=== PATIENT | female | born 1955 | race Caucasian/White ===

== ENCOUNTER → 2016-10-07 | Outpatient (CLI) | payer MEDICARE, OTHER | LOC: LAB.O 10:28 | PROVIDERS: ATTEND Family Medicine | DX: E03.9 Hypothyroidism, unspecified (principal); I10 Essential (primary) hypertension; N39.0 Urinary tract infection, site not specified ==

== ENCOUNTER → 2016-10-13 | Outpatient (CLI) | payer MEDICARE, OTHER ==
--- NOTE | 2016-10-13 13:53 | MAM ---
History: Well woman exam. Date of exam: 10/13/2016 Services provided: Bilateral full field digital screening mammography. CAD, the images were reviewed with R2 computer aided detection. FINDINGS: Glandular tissue is scattered glandular contour. Comparison with 2012 exam. No dominant mass, architectural distortion or clustered microcalcification. IMPRESSION: Benign exam Recommendation: Routine annual mammography BIRAD CATEGORY: 2 BENIGN Electronically signed by: Antonieta Sullivan MD 10/13/2016 1:51 PM CDT
== END ==
LOC: MAMMO 11:54
PROVIDERS: ATTEND Family Medicine
DX: Z12.31 Encounter for screening mammogram for malignant neoplasm of breast (principal)

== ENCOUNTER → 2016-11-30 | Outpatient (CLI) | payer MEDICARE, OTHER | END | disposition home or self-care (01) | LOC: GMAM 14:23 | PROVIDERS: ATTEND Family Medicine | DX: N39.0 Urinary tract infection, site not specified (principal) ==

== ENCOUNTER → 2016-12-02 | Day surgery (SDC) | payer MEDICARE, OTHER ==
[~2016-12-02] MED LIST: LACTATED RINGERS 1,000 ML ONE; LIDOCAINE 1% 10 ML VIAL INJ ONE; PROPOFOL 200 MG/20 ML VIAL IV ONE
[2016-12-02 08:48] VITALS: BP 78/38; TEMP 97.1; O2SAT 100
--- NOTE | 2016-12-02 08:51 | OP ---
DATE OF PROCEDURE: 12/02/16 INDICATION: More than ten years since last colonoscopy in a patient who is 61 years old. PREOPERATIVE DIAGNOSIS: 1. Screening colonoscopy. POSTOPERATIVE DIAGNOSIS: 1. Normal colonoscopy completed to the cecum with ileocecal valve visualized, but not cannulated. PROCEDURE: 1. Colonoscopy. SURGEON: Lemuel Valderrama MD. COMPLICATIONS: None apparent. ESTIMATED BLOOD LOSS: None. ANESTHESIA: Per Robe Rahman CRNA. TECHNIQUE: The patient was brought to the GI Lab and laid in the left lateral decubitus position. Digital rectal exam was performed and found to be normal. Colonoscope was advanced into the rectum and very gradually through to her cecum. The ileocecal valve was visualized. There was some fecal material noted in the cecum region. This was irrigated and suctioned and irrigated and suctioned and I think we got fairly adequate visualization of the cecum with no polyps or masses noted. The scope was then gradually withdrawn through the ascending colon with no polyps noted, back through the transverse colon which appeared normal, through the descending colon and sigmoid colon, all of which appeared normal. The scope was withdrawn into the rectum where it was retroflexed and normal findings were noted there as well. The scope was straightened and withdrawn gradually. The patient tolerated the procedure well. There were no obvious complications. #[id number] [facility]
== END ==
LOC: AMB 05:48
PROVIDERS: ATTEND Family Medicine
DX: Z12.11 Encounter for screening for malignant neoplasm of colon (principal); I10 Essential (primary) hypertension; E78.5 Hyperlipidemia, unspecified; E03.9 Hypothyroidism, unspecified; E78.00 Pure hypercholesterolemia, unspecified; R06.00 Dyspnea, unspecified; Z88.0 Allergy status to penicillin; Z79.899 Other long term (current) drug therapy
CPT/HCPCS: 00810; G0121; J3490; J7120

== ENCOUNTER → 2017-04-18 | Outpatient (CLI) | payer MEDICARE, OTHER | END | disposition home or self-care (01) | LOC: GMAM 10:32 | PROVIDERS: ATTEND Family Medicine | DX: E03.9 Hypothyroidism, unspecified (principal); I10 Essential (primary) hypertension ==

== ENCOUNTER → 2018-08-02 | Outpatient (CLI) | payer MEDICARE, OTHER | LOC: GMAM 10:36 | PROVIDERS: ATTEND Family Medicine | DX: E03.9 Hypothyroidism, unspecified (principal) ==

== ENCOUNTER → 2018-11-20 | Outpatient (CLI) | payer MEDICARE, OTHER ==
--- NOTE | 2018-11-20 12:11 | US ---
EXAM DESCRIPTION: Breast,Left: Ultrasound CLINICAL HISTORY: 63 yearsFemaleABNORMAL MAMMO left breast Mass on prior digital breast tomosynthesis examination. Patient does not remember trauma or prior procedure to the left breast since 2017 mammogram. COMPARISON: Bilateral screening digital breast tomosynthesis 11/03/2018. Bilateral 2-D digital screening mammography 10/13/2016. TECHNIQUE: Transcutaneous scanning of the left breast utilizing snyder-scale and Doppler modes. Scanning performed by the ironing pleater and Dr. Mejía. FINDINGS: Ultrasound: Scanning the lower inner quadrant of the left breast. Emphasis on the 8:00 position 5 cm from the nipple. Predominantly fatty tissue with minimal fibroglandular elements. Unusual subcutaneous mass is visualized measures approximately 11 x 9 x 8 mm, with an echogenic capsule, anechoic center with an irregular eccentric nodule which is hypoechoic. Nodule dimensions are 5.4 x 4.5 x 5.2 mm. The fluid component is posteriorly enhancing acoustically and the nodular component demonstrates mixed enhancement and shadowing. Wider than tall orientation. Neither the capsule nor the nodule are nonvascular. No large calcifications. No parenchymal edema. No separate solid mass. A separate anechoic cyst with circumscribed margins and posterior acoustic enhancement measuring 4.5 x 4.1 x 3.9 mm is abutting the larger mass. Nonvascular and no surrounding edema or calcifications. IMPRESSION: Necrosis/oil cyst versus partially cystic tumor. ASSESSMENT: BI-RADS CATEGORY 4: SUSPICIOUS. SUB-CATEGORY 4A - LOW SUSPICION FOR MALIGNANCY. RECOMMENDATION: Surgical consultation and tissue diagnosis should be considered. The FINDINGS and FOLLOW-UP plan were reviewed in person with the patient following the examination. Written communication explaining the IMPRESSION and FOLLOW-UP will be mailed to the patient and referring care provider. CRITICAL COMMUNICATION: The critical value was discussed directly by phone with Dr. Valderrama's nurse, Melany at approximately 1030 hours, on November 20, 2018. Electronically signed by: Adrian Mejía MD 11/20/2018 12:09 PM CDT
== END ==
LOC: MAMMO 09:00
PROVIDERS: ATTEND Family Medicine
DX: R92.8 Other abnormal and inconclusive findings on diagnostic imaging of breast (principal)

== ENCOUNTER 2018-12-07 07:00 | Day surgery (SDC) | payer MEDICARE, OTHER ==
--- NOTE | 2018-12-05 14:29 | RAD ---
XR CHEST 2 VIEWS HISTORY: 63 years Female PRE OP COMPARISON: None. TECHNIQUE: PA and lateral views of the chest. FINDINGS: Lungs: No focal consolidation, pleural effusion, or pneumothorax detected. Heart/Mediastinum: Cardiomediastinal silhouette is unremarkable. Bones: No acute abnormality detected. IMPRESSION: No evidence of an acute cardiopulmonary process. Electronically signed by: Marc Lauren MD 12/05/2018 2:27 PM CDT
[~2018-12-07 07:00] MED LIST changes: +DEXAMETHASONE INJ 10 MG/ML VIAL ONE; +KETAMINE HCL 100 MG/ML VIAL ONE; -LACTATED RINGERS 1,000 ML ONE; +MIDAZOLAM INJ 2 MG/2 ML VIAL ONE; +fentaNYL CITRATE INJ 50 MCG/ML AMP ONE; +raNITIdine HCL INJ 25 MG/ML VIAL ONE
[2018-12-07] MEDS ORDERED: LACTATED RINGERS 1,000 ML IVS ONE (10:13)
--- NOTE | 2018-12-07 10:35 | US ---
EXAM DESCRIPTION: Biopsy/Needle Guidance CLINICAL HISTORY: 63 years Female, PRE OP EXCISION BREAST MASS COMPARISON: Ultrasound left breast 11/20/2018. Bilateral screening digital breast tomosynthesis 11/03/2018. TECHNIQUE: The procedure was explained to the patient with risks and benefits. The patient gave verbal and written consent. Repeat ultrasound localized the lesion at the 8:00 position of the left breast 5 cm from the nipple. Sterile preparation. Sterile ultrasound guidance. 1% Xylocaine 9:1 ratio with sodium bicarbonate for skin and subdermal anesthesia. Skin incision made with # 11 scalpel blade. Medial to lateral approach. Inserted 5 cm Kopans wire needle system to the edge of the lesion. Wire advanced through the lesion. Needle was removed. Excess wire was clipped. The patient tolerated the procedure well with no immediate complications . FINDINGS: Images obtained prior to the procedure shows the partially cystic 9.4 x 8.7 mm mass in the left breast. Nodule in the cyst measures 5.3 x 4.7 mm. Additional images show the localization needle passing through the lesion and the localizing wire with hook deployed within the lesion. IMPRESSION: Successful, ultrasound-guided, wire localization of complex partially cystic, left breast mass in the lower inner quadrant, 5 cm from the nipple. Patient transferred to surgery in good condition for excisional biopsy. Electronically signed by: Adrian Mejía MD 12/07/2018 10:33 AM CDT
[2018-12-07] MEDS ORDERED: SODIUM BICARBONATE VIAL 50 MEQ/50 ML VIAL IV ONE (10:50)
[2018-12-07] MEDS ORDERED: LIDOCAINE 1% 50 ML VIAL INJ ONE (10:50)
--- NOTE | 2018-12-07 13:10 | OP ---
DATE OF PROCEDURE: 12/07/18 PREOPERATIVE DIAGNOSIS: 1. Abnormal left mammogram. POSTOPERATIVE DIAGNOSIS: 1. Abnormal left mammogram. PROCEDURE: 1. Excision of left breast mass after needle localization. SURGEON: Steven Mcneill MD. BANKING MANAGEMENT CONSULTING MANAGER: None. ANESTHESIA: Local infiltration of bicarb and IV sedation by Anesthesia. INDICATION: The patient is a 63-year-old female with a family history of breast cancer. She was shown to have a cystic mass with a solid component on mammography and ultrasound. She was brought to the Surgical Suite today for excisional biopsy of same after the needle localization. FINDINGS: The ultrasound and mammogram revealed the mass within the specimen. The specimen margins were marked with Silk sutures on the anterior and superior margin and the lateral margin was marked by the remaining piece of the guidewire. PROCEDURE: After the patient underwent the needle localization in Radiology, she was brought to the Surgical Suite and placed in the supine position. IV sedation was performed. She was then prepped and draped in the usual sterile manner. A surgical time-out was taken. The guidewire was clipped until it just extended approximately 6 to 8 mm from the skin. An incision was marked with a marking pen. Infiltration of anesthesia was then obtained. The skin was incised with a knife and dissection was carried down through the skin using electrocautery. The guidewire was identified and followed medially. It was then transected and at this point, retractors were placed and a tubular piece of tissue was excised around the guidewire using electrocautery. The wound was packed. The specimen was sent for evaluation in Radiology. After holding pressure, the wound was inspected. There was no bleeding obtained. It was irrigated with saline and then closed in layers with the subcutaneous tissue reapproximated with 3-0 Vicryl sutures. The skin edges were approximated with 4-0 Vicryl subcuticular sutures, benzoin and Steri-Strips. Sterile pressure dressing was applied. The patient was then awakened and take to the Recovery Room in good and stable condition. The patient tolerated the procedure well. Estimated blood loss less than 10 mL. All sponge, needle and instrument counts were correct. [facility][id number] [facility]
[2018-12-07 13:24] VITALS: BP 177/64; TEMP 96.8; O2SAT 97
--- NOTE | 2018-12-07 14:49 | US ---
EXAM DESCRIPTION: Specimen Study: Digital Mammography/Ultrasound. CLINICAL HISTORY: 63 yearsFemale . Mass found on bilateral screening digital breast tomosynthesis 11/03/2018. Targeted left breast ultrasound 11/20/2018. Wire localization of left breast mass followed by open excisional biopsy today. COMPARISON: Ultrasound guided, needle wire localization of left breast mass today. TECHNIQUE: Digital mammography and targeted ultrasound of left breast biopsy specimen. Within the surgical specimen container . FINDINGS: The left lower inner quadrant breast biopsy specimen contains the mass seen on today's procedure images and also seen on images from previous examinations. The distal wire and hook are found within the specimen. The mass and wire look are better visualized on the mammographic image. IMPRESSION: Successful, digital ultrasound guided, needle wire localization of mass in the lower inner quadrant left breast, with wire and hook present in the mass contained in the biopsy specimen. The results were called to a injection molding process technician in the operating room at 1040 hours today. Electronically signed by: Adrian Mejía MD 12/07/2018 2:47 PM CDT
== END 2018-12-07 13:13 | disposition home or self-care (01) ==
LOC: US 07:00
PROVIDERS: ATTEND Surgery
DX: N60.02 Solitary cyst of left breast (principal); I10 Essential (primary) hypertension; E07.89 Other specified disorders of thyroid; Z80.3 Family history of malignant neoplasm of breast; Z88.0 Allergy status to penicillin; Z79.899 Other long term (current) drug therapy
CPT/HCPCS: 00400; 19120; 36415; 71046; 80048; 81001; 85025; 88305; 88341; 88342; 93005; J1100; J2250; J2780; J3010; J3490; J7120

== ENCOUNTER → 2019-06-25 | Outpatient (CLI) | payer MEDICARE, OTHER ==
--- NOTE | 2019-06-25 14:10 | MAM ---
EXAM DESCRIPTION: 3D Diagnostic, Left: Digital Mammography CLINICAL HISTORY: 64 yearsFemaleLEFT BREAST BIOPSY FOLLOW UP . Benign, excisional breast biopsy November 2018. Six-month follow-up. No personal or family history of breast cancer. Menarche age 14. Postmenopausal. No HRT. Lifetime risk of developing breast cancer (Tyrer-Cuzick model) percentage is 6.6. COMPARISON: Bilateral screening digital breast tomosynthesis October 2018. Left breast ultrasound and ultrasound-guided wire localization of left breast mass in November 2018... TECHNIQUE: Left breast LM, CC, and MLO projection full-field images, digital mammographic tomosynthesis technique. Bilateral 2-D digital full-field MLO images. MLO, CC, and LM projections. CAD not available. FINDINGS: The breast parenchymal density pattern is: Scattered areas of fibroglandular density. Minimal architectural distortion at the region of interest lower inner quadrant of the anterior to middle third of the left breast near the skin surface. Consistent with history of biopsy. Benign lesion seen on images prior to the biopsy, is no longer visualized. No mass density or abnormal microcalcifications. No new focal, stellate mass or density, focal asymmetry , and no suspicious microcalcifications left breast. IMPRESSION: Benign exam. Excision of prior benign lesion left breast. BIRAD CATEGORY: 2 BENIGN FINDINGS. RECOMMENDATIONS: FOLLOW UP: Return to routine digital bilateral mammographic screening, after October 2019. Written communication explaining the IMPRESSION and follow-up, will be mailed to the patient and referring health care provider. The FINDINGS and the FOLLOW-UP plan were reviewed in person with the patient after the examination. According to the [employer], yearly mammograms are recommended starting at age 40 and continuing as long as a woman is in good health. Any breast change noted on a breast self-exam should be reported promptly to the patient's healthcare provider. Breast MRI is recommended for women with an approximately 20-25% or greater lifetime risk of breast cancer, including women with a strong family history of breast or ovarian cancer and women who have been treated for Hodgkin's disease. A negative mammographic report should not delay tissue diagnosis in patients with significant clinical history or physical findings. Extremely dense breast tissue limits the sensitivity of digital mammography. Electronically signed by: Adrian Mejía MD 06/25/2019 2:08 PM EDGING MACHINE OPERATOR
== END ==
LOC: MAMMO 09:00
PROVIDERS: ATTEND Surgery
DX: R92.8 Other abnormal and inconclusive findings on diagnostic imaging of breast (principal); Z98.890 Other specified postprocedural states
CPT/HCPCS: 77065; G0279

== ENCOUNTER 2019-10-05 11:44 | Observation (INO) | payer MEDICARE, OTHER ==
[2019-10-05] MEDS ORDERED: SODIUM CHLORIDE 0.9% (FLUSH) 10 ML SYG IV PRN ×2 (11:46→17:03)
[2019-10-05] MEDS ORDERED: MORPHINE SULFATE INJ 10 MG/ML VIAL IV ONE (11:51)
--- NOTE | 2019-10-05 11:57 | ED.PDOC ---
History of Present Illness - General Time Seen by Provider: 10/05/19 11:46 - History of Present Illness Initial Comments: 64 y/o female presents with upper abdominal pain after eating and then sudden onset of SOB. She presents in severe distress. Possible ruptured viscus, AAA, aortic dissection. Review of Systems - Review of Systems Constitutional: States: no symptoms reported EENTM: States: no symptoms reported Respiratory: States: short of breath Cardiology: States: no symptoms reported Gastrointestinal/Abdominal: States: abdominal pain Genitourinary: States: no symptoms reported Musculoskeletal: States: no symptoms reported Skin: States: no symptoms reported Neurological: States: no symptoms reported Hematologic/Lymphatic: States: no symptoms reported Past Medical History (General) - Patient Medical History Hx Seizures: No Hx Stroke: Yes Hx Dementia: No Hx Asthma: No Hx of COPD: No Hx Cardiac Disorders: No Hx Congestive Heart Failure: No Hx Pacemaker: No Hx Hypertension: Yes Hx Thyroid Disease: Yes Hx Diabetes: No Hx Gastroesophageal Reflux: No Hx Renal Disease: No Hx Cancer: No Hx of HIV: No Hx Hepatitis C: No Hx MRSA: No - Social History Hx Tobacco Use: No Hx Alcohol Use: No Hx Substance Use: No Hx Substance Use Treatment: No Hx Depression: No Family Medical History - Family History Mother Family History: No Known Physical Exam - Physical Exam General Appearance: Anxious, Obvious distress Eyes, Ears, Nose, Throat Exam: normal ENT inspection, pharynx normal Neck: non-tender, full range of motion Respiratory: chest non-tender, lungs clear, normal breath sounds, respiratory distress Cardiovascular/Chest: regular rate, rhythm, no edema, no JVD, no murmur Gastrointestinal/Abdominal: abnormal bowel sounds, distended Back Exam: normal inspection Neurologic: 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 No ST abnormalities 10/05/19 12:[address], lab reviewed 10/05/19 14:53 vomited. Spoke with Casey Garcia, requests gb sono and lipase before admission 10/05/19 16:30 Pt will be observed overnight for severe abdominal pain. Departure - Departure Clinical Impression: Abdominal pain Disposition: Admit Patient Condition: Fair Referrals: Lemuel Valderrama MD [Primary Care Provider] - 1-2 Weeks Home Medications: Ambulatory Orders Calcium Carb 500Mg-Vitamin D [Oscal 500mg w/D] 600 mg PO BID 11/30/16 Simvastatin [Zocor] 40 mg PO BEDTIME 11/30/16 Thyroid [Gardiner Thyroid] 120 mg PO DAILY@0711/30/16 Valsartan [Diovan] 20 mg PO BEDTIME 11/30/16 Thyroid [Gardiner Thyroid] 15 mg PO DAILY@0712/06/18
--- NOTE | 2019-10-05 12:09 | RAD ---
EXAM DESCRIPTION: Abdomen 1 View CLINICAL HISTORY: 64 years Female, pain COMPARISON: None. Findings: 1 view(s)/radiograph(s) Location: abdomen Nonobstructive bowel gas pattern. No suspicious calcification. No acute osseous abnormalities. Soft tissues are unremarkable. Moderate stool volume. Atherosclerotic disease. IMPRESSION: Nonobstructive bowel gas pattern. Electronically signed by: Aiden Duong MD 10/05/2019 12:08 PM CDT
--- NOTE | 2019-10-05 12:10 | RAD ---
EXAM DESCRIPTION: Chest,1 View CLINICAL HISTORY: 64 years Female, SOB COMPARISON: None. FINDINGS: One view/radiograph Heart size and pulmonary vessels are within normal limits. There is no pneumothorax or pleural effusion. The lungs are clear bilaterally. The soft tissues are unremarkable. No acute osseous findings. IMPRESSION: No acute cardiopulmonary abnormality. Electronically signed by: Aiden Duong MD 10/05/2019 12:08 PM CDT
[2019-10-05] MEDS ORDERED: SODIUM CHLORIDE 0.9% 100 ML BAG IVPB SCH (12:30)
--- NOTE | 2019-10-05 13:35 | CT ---
EXAM DESCRIPTION: CTA Chest CLINICAL HISTORY: 64 years, Female, SOB, very sudden COMPARISON: None TECHNIQUE: CT pulmonary angiography is performed with thin-section multi detector technique during rapid bolus administration of routine adult dose of nonionic iodinated IV contrast media. Multiplanar reformatted images are reviewed along with source images and maximum intensity projection three dimensional images which were created on a separate dedicated workstation and are stored in the patient's medical record. FINDINGS: Normal enhancement of pulmonary arteries. Normal enhancement of cardiac chambers. Early enhancement of the aorta is negative for aneurysm or dissection. Heart is prominent in size. No mediastinal adenopathy. Normal CT appearance of the esophagus. Lung window images show mild basilar patchy infiltrates or partial volume loss. No worrisome mass or nodule. In the upper abdomen, mottled low density of the liver may be passive hepatic congestion or inhomogeneous hepatic steatosis. Correlate with echocardiographic findings. Upper abdominal viscera are otherwise unremarkable. No chest wall mass or rib fracture. Prominent lymph nodes in the right axilla with fatty [place] probably reactive. No lower cervical adenopathy. Symmetrical appearance of the breast tissue. Degenerative changes in the right shoulder. Thyroid gland is atrophic or surgically absent. Coronal and sagittal reformatted CTA images confirm normal pulmonary arterial enhancement. IMPRESSION: Negative for evidence of pulmonary embolic disease. Bibasilar patchy infiltrates or partial volume loss. This exam was performed according to our departmental dose-optimization program, which includes automated exposure control, adjustment of the mA and/or kV according to patient size and/or use of iterative reconstruction technique. Total DLP equals 956.34 mGycm. Electronically signed by: Frankie Bernal MD 10/05/2019 1:34 PM CDT
--- NOTE | 2019-10-05 13:42 | CT ---
EXAM DESCRIPTION: CT ABDOMEN WITH CONTRAST CLINICAL HISTORY: pain COMPARISON: None Available. TECHNIQUE: CT of the abdomen is performed during IV bolus administration routine adult dose of nonionic iodinated IV contrast. No oral contrast. FINDINGS: Patchy infiltrates or partial volume loss in both lower lobes. Heart is prominent. No pericardial effusion. Liver is normal in size and parenchymal appearance. Portal venous phase imaging shows normal appearance of the liver with no evidence of passive hepatic congestion or fatty infiltration questioned on the chest CT. Normal enhancement of the spleen. Spleen, pancreas, and kidneys are unremarkable. Gallbladder appears distended. High density of the wall of the gallbladder may be partial calcification or prominent enhancement. No calcified stones in the gallbladder lumen. There is no lymphadenopathy, inflammation, or free fluid observed in the abdomen. The pelvis is not included on the study. Coronal and sagittal reformatted images show degenerative changes in lumbar spine with levoscoliosis. Appendix appears normal. IMPRESSION: No acute abdominal process. This exam was performed according to our departmental dose-optimization program, which includes automated exposure control, adjustment of the mA and/or kV according to patient size and/or use of iterative reconstruction technique. Electronically signed by: Frankie Bernal MD 10/05/2019 1:41 PM CDT
[2019-10-05] MEDS ORDERED: ACETAMINOPHEN IV 1000MG 1,000 MG in PREMIX BOTTLE 1 BOTTLE IVPB ONE (14:41)
[2019-10-05] MEDS ORDERED: PROMETHAZINE HCL INJ 12.5 MG in SODIUM CHLORIDE 0.9% 50ML 50 ML IVPB ONE (14:52)
[2019-10-05] MEDS ORDERED: ACETAMINOPHEN IV 1000MG 100 ML ONE (14:54)
[2019-10-05] MEDS ORDERED: VALSARTAN 80 MG TAB PO ONE (15:08)
--- NOTE | 2019-10-05 15:55 | US ---
EXAM DESCRIPTION: Gall Bladder CLINICAL HISTORY: 64 years Female, upper abd pain COMPARISON: CT abdomen and pelvis 10/05/2019. TECHNIQUE: Limited sonographic images of the right upper abdomen with color Doppler analysis. FINDINGS: Liver: Liver measures 12.6 cm. Normal parenchymal echogenicity. Normal morphology. Main portal vein patent with appropriate reduction of flow. Biliary Tree: Mild layering echogenic debris within the gallbladder likely represents sludge. 5 mm linear echogenicity within the gallbladder. Gallbladder wall thickness of 2 mm. No intrahepatic biliary dilatation. Common bile duct diameter of 4 mm. Pancreas: Normal visualized portions of the pancreas. Right Kidney: Normal size and location without hydronephrosis. Vasculature: Unremarkable upper abdominal aorta and IVC. Abdominal cavity: No ascites. IMPRESSION: 1. Mild gallbladder sludge without sonographic evidence for acute cholecystitis. 5 mm linear echogenicity within the gallbladder may represent a stone versus gallbladder fold is similarly demonstrated on CT abdomen and pelvis 10/03/2019. Electronically signed by: Dave Grullon MD 10/05/2019 3:54 PM CDT
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
[2019-10-05] MEDS ORDERED: ONDANSETRON INJ 4 MG/2 ML VIAL IV PRN (17:03)
[2019-10-05] MEDS ORDERED: ACETAMINOPHEN 325 MG TAB PO PRN (17:03)
[2019-10-05] MEDS ORDERED: ALUM & MAG HYDROX-SIMETHICONE 30 ML UD PO PRN (17:03)
[2019-10-05] MEDS ORDERED: MAGNESIUM HYDROXIDE 30 ML UD PO PRN (17:03)
[2019-10-05] MEDS ORDERED: IV SET AND CAP CHANGE INJ INJ SCH (17:30)
[2019-10-05] MEDS ORDERED: levoFLOXacin 500MG IV 100 ML IVPB ONE (17:55)
[2019-10-05] MEDS: levoFLOXacin 500MG IV 500 MG in PREMIX BAG 1 BAG IVPB SCH (17:55)
[2019-10-05] MEDS ORDERED: THYROID 60 MG TAB PO ONE (20:36)
[2019-10-05] MEDS ORDERED: VALSARTAN 80 MG TAB ONE (20:36)
[2019-10-05] MEDS ORDERED: OMEPRAZOLE CAP 20 MG CAP ONE (20:36)
[2019-10-05] MEDS ORDERED: SIMVASTATIN 20 MG TAB ONE (20:37)
[2019-10-05] MEDS: diphenhydrAMINE HCL 25 MG CAP PO SCH (20:48)
[2019-10-05] MEDS: VALSARTAN 40 MG PO SCH (20:49)
[2019-10-05] MEDS ORDERED: NON-FORMULARY MEDICATION 1 EA MIS (Simvastatin [Zocor] 40 MG) PO SCH (21:00)
[2019-10-06] MEDS: THYROID 15 MG PO SCH (05:59)
[2019-10-06] MEDS: THYROID 120 MG PO SCH (05:59)
[2019-10-06] MEDS: OMEPRAZOLE CAP 20 MG CAP PO SCH (05:59)
[2019-10-06] MEDS: CALCIUM CARBONATE-VITAMIN D 500 MG TAB PO SCH ×3 (08:56→20:56)
[2019-10-06] MEDS ORDERED: SUGAMMADEX SODIUM 200 MG/2 ML VIAL IV ONE (10:14)
[2019-10-06] MEDS ORDERED: MIDAZOLAM INJ 2 MG/2 ML VIAL ONE (10:14)
[2019-10-06] MEDS ORDERED: fentaNYL CITRATE INJ 50 MCG/ML 2 ML AMP ONE ×2 (10:14→11:46)
[2019-10-06] MEDS ORDERED: ROCURONIUM BROMIDE 10 MG/ML VIAL ONE (10:14)
[2019-10-06] MEDS ORDERED: LACTATED RINGERS 1,000 ML ONE (10:31)
--- NOTE | 2019-10-06 11:00 | PN ---
SUPERVISING PHYSICIAN: Raza Burgos MD DATE: 10/06/19 SUBJECTIVE: The patient has not had any additional pain overnight. She has been afebrile. She has no complaints. She has no shortness of breath or nausea. She has been n.p.o. after midnight. Dr. Mace saw her last night and recommended she had a laparoscopic cholecystectomy this morning given the CT findings and clinical assessment. OBJECTIVE: VITAL SIGNS: Afebrile with T-max of 98.4, pulse 72, blood pressure 144/54, respirations 18, oxygen saturation 93 to 97% on room air. GENERAL: The patient is resting comfortably, does not appear to be in any distress. She is alert. CHEST: Remains clear to auscultation. HEART: Regular rate and rhythm. ABDOMEN: Soft, non-tender, positive bowel sounds. EXTREMITIES: Without edema. NEUROLOGIC: Alert and oriented x3. LABORATORY: Normalized white count at 6,700, no left shift. Hemoglobin 12.8, hematocrit 37.8, platelet count 185,000. Chemistries showed normal electrolytes this morning with potassium 3.8. Creatinine 0.56, calcium 8.2. She had 2 sets of troponins that were less than 0.02. ASSESSMENT: 1. Right upper quadrant pain pending laparoscopic cholecystectomy by Dr. Mace today with no reported chest pain. No signs of acute coronary syndrome, troponins all being negative and no EKG changes noted. 2. Leukocytosis on admission, likely demarginalization from acute pain, now normalized with no signs of infectious process. 3. Hypertension showing to be stable. 4. Hypercholesterolemia, chronic. 5. Hypothyroidism on supplementation. 6. Electrolyte imbalance with a mild hypokalemia on admission, now normalized. PLAN: The patient is going to have a laparoscopic cholecystectomy today by Dr. Mace. We will follow the patient postoperatively with further orders per Dr. Mace and patient showing no signs of infection, no evidence of acute coronary syndrome and should be able to discharge once the patient is showing to be stable as per Dr. Mace's recommendations. Until then, we will continue to monitor and treat as needed. #[id number] [facility]TDD
[2019-10-06] MEDS ORDERED: BUPIVACAINE 0.5% 30 ML VIAL INJ ONE (11:12)
[2019-10-06] MEDS ORDERED: SODIUM CHLORIDE 0.9% 50 ML VIAL INJ ONE (12:00)
[2019-10-06] MEDS ORDERED: LIDOCAINE 1% 10 ML VIAL INJ ONE (12:00)
[2019-10-06] MEDS ORDERED: GLYCOPYRROLATE 0.2 MG/ML VIAL IV ONE (12:00)
[2019-10-06] MEDS ORDERED: MAGNESIUM SULFATE INJ 1 GM/2 ML VIAL IVPB ONE (12:00)
[2019-10-06] MEDS ORDERED: DEXAMETHASONE INJ 10 MG/ML VIAL IV ONE (12:00)
--- NOTE | 2019-10-06 12:34 | OP ---
DATE OF SURGERY: 10/06/19 PREOPERATIVE DIAGNOSIS: 1. Cholecystitis. POSTOPERATIVE DIAGNOSIS: 1. Acute and chronic cholecystitis. . PROCEDURE: 1. Laparoscopic cholecystectomy with intraoperative cholangiogram, difficult case modifier for extreme inflammation and some abnormal anatomy. SURGEON: Raza Mace MD. ANESTHESIA: General and local. FINDINGS: There was significant inflammation with difficulty in dissecting out the ducts clearly due to chronic inflammation. Cholangiogram, however, revealed a very long cystic duct attaching to the very distal common bile duct but otherwise normal flow throughout without any leak or filling defect. COMPLICATIONS: None. ESTIMATED BLOOD LOSS: Minimal. SPECIMEN: Gallbladder. PLAN: Admit. INDICATION: As stated. PROCEDURE: General anesthesia was induced. The patient was prepped and draped in sterile fashion. Marcaine 0.5% with epinephrine was used at all incision sites. While maintaining upward traction, a jayla was made near the base of the umbilicus. Veress needle was introduced. There was free flow of fluid into the peritoneal cavity which was insufflated to an appropriate level with CO2 gas. The 5 mm trocar was placed followed by the camera. There was no evidence of bleeding or bowel injury. The patient was positioned and subxiphoid and lateral ports were placed without difficulty under direct visualization. The gallbladder fundus was inflamed. It was grasped and retracted. There were anterior adhesions that were taken down. The infundibulum was then grasped and manipulated, it was very dense with adhesions and not easy to dissect out the structures. We did identify the node and stayed above this. We then proceeded to dissect out the lateral savage on each, elevating the gallbladder off the fossa as much as we could to come down on the neck of it and identify the duct. I was not able to get behind posterior tissue, identify the artery dissecting off that duct and then clipped it. We had made one small hole of dissecting in the gallbladder itself and then in the more distal near the duct junction and now as we dissected that off and got it more free, it was clear that is was on the gallbladder wall and nothing deeper so this is where we did our cholangiogram and it revealed a very long cystic duct tracking all the way down to the distal common bile duct and then it filled retrograde into the hepatic radicles and no evidence of leakage. This area of the duct was too large for a clip but we did place a clip on proximal and distal and ligated it and then dissected the gallbladder off the fossa and totally removed it with the EndoCatch bag. The fossa was examined, some hemostasis was needed and achieved with cautery. We then put it in a 0 Vicryl Endoloop and grasped the cystic duct stump, placed a loop around it and successfully tied that off. The area was irrigated and examined. There was no evidence of bleeding or bile leakage. Under low pressure it remained hemostatic. All the aspirate at this time was clear. The subxiphoid fascia was then closed with 0 Vicryl using the suture passer. It was airtight and non-bleeding. The remaining trocars were removed. There was no bleeding from the trocar sites. The wounds were irrigated and closed with Monocryl. Dressings were applied. The patient was awakened and taken to Recovery in stable condition to be admitted. CC: Dr. Min Valderrama #[id number] MTDD
[2019-10-06] MEDS ORDERED: HYDROmorphone HCL INJ 2 MG/ML VIAL ONE (12:46)
[2019-10-06] MEDS ORDERED: ONDANSETRON INJ 4 MG/2 ML VIAL ONE (12:46)
[2019-10-06] MEDS: HYDROcodone 5MG/APAP 325MG 1 EA TAB PO PRN ×3 (14:27→22:28)
[2019-10-06] MEDS ORDERED: VALSARTAN 80 MG TAB ONE (15:12)
[2019-10-06] MEDS: VALSARTAN 40 MG PO SCH ×2 (15:18→20:56)
[2019-10-06] MEDS ORDERED: levoFLOXacin 500MG IV 100 ML IVPB ONE (17:45)
[2019-10-06] MEDS: levoFLOXacin 500MG IV 500 MG in PREMIX BAG 1 BAG IVPB SCH (17:46)
[2019-10-06] MEDS: diphenhydrAMINE HCL 25 MG CAP PO SCH (20:56)
[2019-10-06] MEDS ORDERED: SIMVASTATIN 20 MG TAB PO SCH (21:00)
[2019-10-07] MEDS: HYDROcodone 5MG/APAP 325MG 1 EA TAB PO PRN ×2 (04:43→09:15)
[2019-10-07] MEDS: OMEPRAZOLE CAP 20 MG CAP PO SCH (05:48)
[2019-10-07 06:06] VITALS: TEMP 97.6
[2019-10-07] MEDS: THYROID 15 MG PO SCH (06:13)
[2019-10-07] MEDS: THYROID 120 MG PO SCH (06:14)
[2019-10-07] MEDS: CALCIUM CARBONATE-VITAMIN D 500 MG TAB PO SCH (09:17)
[2019-10-07 10:16] VITALS: BP 105/62; O2SAT 94
[2019-10-08] MEDS ORDERED: FAMOTIDINE 10 MG/ML ML IV ONE (07:00)
--- NOTE | 2019-10-15 13:55 | DS ---
SUPERVISING PHYSICIAN: Raza Burgos MD ADMISSION DIAGNOSIS: 1. Right upper quadrant pain, uncertain etiology, rule out possible biliary colic versus cholecystitis awaiting surgical consultation versus chest pain with initial troponin being negative and EKG showing normal sinus rhythm, no acute changes, requiring further evaluation, continue to rule out acute coronary syndrome. 2. Mild leukocytosis, etiology uncertain,however, there is no left shift and the patient was in severe pain on presentation so likely a demargination due to acute pain response with no significant findings to indicate acute infectious process noted on CT of the chest. 3. History of hypertension. 4. History of hypercholesterolemia. 5. History of hypothyroidism on supplementation. 6. CT findings of chest indicating possible atelectasis versus bibasilar opacities with no current signs of respiratory compromise or infectious process including pneumonia. 7. Electrolyte imbalance with a mild hypokalemia. DISCHARGE DIAGNOSIS: 1. Acute cholecystitis status post laparoscopic cholecystectomy by Dr. Mace, discharged on postoperative day #1. 2. Leukocytosis on admission, likely demargination from acute pain, now normalized with no signs of infectious process. 3. Hypertension showing to be stable. 4. Hypercholesterolemia, chronic. 5. Hypothyroidism on supplementation. 6. Electrolyte imbalance with a mild hypokalemia on admission, now normalized. REASON FOR HOSPITALIZATION: Ms. Diggs is a 64 year-old female patient who developed right upper side epigastric abdominal pain after eating breakfast this morning, She endorses the pain started in her right upper quadrant but not to where she felt like she could not catch her breath and she went to the Emergency Room for evaluation. In the Emergency Room, initial workup on the chest x-ray showed no acute cardiopulmonary process. She then had a CTA of the chest to rule out the possibility of an aortic rupture or pulmonary embolus and per radiology interpretation was negative for any pulmonary or embolic disease. There was note of some bibasilar patchy infiltrates or partial volume loss. She was given morphine which did result in a decrease in her pain. She was still having some nausea but no actual emesis. Further workup included a gallbladder ultrasound and per radiology interpretation showed mild gallbladder sludge without any sonographic evidence for acute cholecystitis. Laboratory studies showed a mild leukocytosis of 14,300 without a left shift. Hemoglobin normal at 14.9 and hematocrit 44.8. Chemistries showed just a mildly low potassium at 3.5. All other chemistries were within normal limits including troponin less than 0.002, lipase normal at 40, bilirubin 0.6. Urinalysis was within normal limits. Her vital signs initially on presentation to the Emergency Room showed she was hypertensive with a blood pressure of 204/69, pulse 77 with respirations of 18, oxygen saturation 99% on room air, temperature 99.0. She was also given IV acetaminophen which did help resolve her pain. Given the patient's advanced age, frailty and sudden onset of symptoms, the patient is going to be placed in observation to further rule out any actual chest pain, acute coronary syndrome with a surgical consultation pending. The patient is placed in observation in stable condition. LABORATORY: White count on discharge was 12,300, hemoglobin 13.4, hematocrit 40.0, platelet count 222,000. Chemistries on discharge showed normal electrolytes, BUN 13, creatinine 0.57. Her liver functions were elevated at AST 214, ALT 352, alkaline phosphatase 206. Troponins less than 0.02. Lipase 40. MICROBIOLOGY: No specimens submitted. RADIOLOGY: EKG done preoperatively showed normal sinus rhythm. She had an extensive workup which included abdominal CT, CT of the chest and a gallbladder ultrasound. Please see those reports for details. CONSULTATION: Surgical consultation Raza Mace MD, general surgeon. PROCEDURE: Laparoscopic cholecystectomy with intraoperative cholangiography. Difficult case modifier for extreme inflammation and some abnormal anatomy. Please see Dr. Mace's operative report for details. HOSPITAL COURSE: Ms. Diggs was admitted for acute cholecystitis and had a laparoscopic cholecystectomy. She did well postoperatively and had no complications. She had no recurring pain. She was ambulating and tolerating a diet. She was afebrile. She was felt to be clinically stable to continue with outpatient management. DISCHARGE ASSESSMENT: VITAL SIGNS: Temperature 97.6, pulse 72, blood pressure 105/62, respirations 18, and therefore 94% on room air. GENERAL: The patient was resting comfortably, did not appear to be in any distress. She was alert. CHEST: Clear to auscultation. HEART: Regular rate and rhythm. ABDOMEN: Soft. Some tenderness noted over the surgical sites, otherwise benign without any tenderness. Bowel sounds present. NEUROLOGIC: Alert and oriented x3. PLAN: Ms. Diggs was discharged on 10/07/19 with instructions to followup with Dr. Mace in two weeks as well as Dr. Valderrama. She was to resume her home medications as instructed. She was to advance her diet to a low-fat, low- cholesterol diet as tolerated. She was to increase activity as tolerated. Medications on discharge included prescription for pain management with Tylenol #3, 1 q.4h. as needed, #50, no refills. All other medications prior to hospitalization were continued. CONDITION ON DISCHARGE: Stable and improved. DISPOSITION: The patient was discharged home. #[id number] MTDD
== END 2019-10-07 12:10 | disposition home or self-care (01) ==
LOC: ER 11:44 → MS 16:46
PROVIDERS: ADMIT Nurse Practitioner Family; ATTEND Nurse Practitioner Family
DX: K81.2 Acute cholecystitis with chronic cholecystitis (principal); D72.829 Elevated white blood cell count, unspecified; E87.6 Hypokalemia; E87.8 Other disorders of electrolyte and fluid balance, not elsewhere classified; I10 Essential (primary) hypertension; E78.00 Pure hypercholesterolemia, unspecified; E03.9 Hypothyroidism, unspecified; K21.9 Gastro-esophageal reflux disease without esophagitis; Z79.890 Hormone replacement therapy; Z79.899 Other long term (current) drug therapy; Z88.0 Allergy status to penicillin; Z86.73 Personal history of transient ischemic attack (TIA), and cerebral infarction without residual deficits
CPT/HCPCS: 47563; 00790; 96367; 96365; 96375; 96376; Q0163 ×2; J3010 ×2; J1170; J1956 ×2; J2270; J2405 ×2; J3475; J1100; J2250; A4216; J7120; 80048; 80053 ×2; 81001; 85025 ×2; 83690; 84484 ×2; 88304; 74018; 71045; 74160; 71275; 76705; 94760 ×3; 99285; 93005; G0378

== ENCOUNTER → 2019-10-17 | Outpatient (CLI) | payer MEDICARE, OTHER | LOC: GMAM 14:39 | PROVIDERS: ATTEND Family Medicine | DX: E03.9 Hypothyroidism, unspecified (principal); D72.829 Elevated white blood cell count, unspecified; I10 Essential (primary) hypertension ==

== ENCOUNTER → 2019-11-06 | Outpatient (CLI) | payer MEDICARE, OTHER ==
--- NOTE | 2019-11-06 16:39 | MAM ---
EXAM DESCRIPTION: 3D Screening BILATERAL : Digital Mammography. CLINICAL HISTORY: 64 years Female SCREEN . No personal or family history of breast cancer. Menarche age 15. No childbirth. Menopause age 53. No HRT. Lifetime risk of developing breast cancer (Tyrer-Cuzick model)(%): 8.0. COMPARISON: Bilateral screening digital breast tomosynthesis October 2018. Diagnostic targeted ultrasound November 2018. Diagnostic breast tomosynthesis June 2018.. TECHNIQUE: Bilateral CC and MLO projection full-field images, digital tomosynthesis mammographic technique. Bilateral digital 2-D full-field MLO images. CAD available for 2-D images. FINDINGS: The breast parenchymal density pattern is: Scattered areas of fibroglandular density. No skin thickening or nipple retraction. Prominent vascular structures in the bilateral axilla stable. Region of fatty necrosis medial anterior left breast with subtle changes, becoming smaller, but no mass. No new focal, stellate mass or density, focal asymmetry , and no suspicious microcalcifications bilaterally. IMPRESSION: Benign exam. BIRAD CATEGORY: 2 BENIGN FINDINGS. RECOMMENDATIONS: FOLLOW UP: Routine digital bilateral mammographic screening, one year interval from October 2019. Written communication explaining the IMPRESSION and follow-up, will be mailed to the patient and referring health care provider. According to the [employer], yearly mammograms are recommended starting at age 40 and continuing as long as a woman is in good health. Any breast change noted on a breast self-exam should be reported promptly to the patient's healthcare provider. Breast MRI is recommended for women with an approximately 20-25% or greater lifetime risk of breast cancer, including women with a strong family history of breast or ovarian cancer and women who have been treated for Hodgkin's disease. A negative mammographic report should not delay tissue diagnosis in patients with significant clinical history or physical findings. Extremely dense breast tissue limits the sensitivity of digital mammography. Electronically signed by: Adrian Mejía MD 11/06/2019 4:37 PM CDT
== END ==
LOC: MAMMO 09:00
PROVIDERS: ATTEND Family Medicine
DX: Z12.31 Encounter for screening mammogram for malignant neoplasm of breast (principal)

== ENCOUNTER → 2020-06-25 | Outpatient (CLI) | payer MEDICARE, OTHER ==
--- NOTE | 2020-06-25 20:45 | US ---
EXAM DESCRIPTION: Venous,Lower Extremity LT: ULTRASOUND. CLINICAL HISTORY: R/O ACUTE DVT COMPARISON: None Available. TECHNIQUE: Vega-scale and doppler sonographic evaluation of the deep venous system of the left lower extremity. FINDINGS: Doppler evaluation shows normal color flow and normal phasicity and augmentation of the left common femoral vein, left femoral vein, popliteal vein, left greater saphenous vein, junction with the CFV. Also normal color flow and normal phasicity and augmentation of the peroneal, and posterior tibial vein. The left lower extremity deep veins were completely compressible; normal occlusion with transducer pressure. Vega-scale survey showed no echogenic thrombus within these veins. IMPRESSION: 1. Duplex ultrasound evaluation of the left lower extremity deep venous system showing no evidence of thrombosis. Electronically signed by: Adrian Mejía MD 06/25/2020 8:44 PM [employer]
== END ==
LOC: US 15:22
PROVIDERS: ATTEND Surgery Vascular Surgery
DX: M79.662 Pain in left lower leg (principal); M79.89 Other specified soft tissue disorders